=== PATIENT | female | born 1945 | race Caucasian/White ===

== ENCOUNTER 2017-05-14 02:03 | Emergency (ER) | payer MEDICARE ==
[2017-05-14] MEDS ORDERED: methylPREDNISolone Sod Succ/PF 125 MG/2 ML VIAL ONE (03:05)
[2017-05-14 03:13] LABS: ALT (SGPT) 49 U/L (8-55); AST (SGOT) 43 U/L (5-34); Albumin 3.3 g/dL (3.4-4.8); Alkaline Phosphatase 96 U/L (40-150); Anion Gap 14 mmol/L (10-20); BUN (Urea Nitrogen) 18 mg/dL (9.8-20.1); Bilirubin, Total 0.4 mg/dL (0.2-1.2); Calc. Creatinine Clearance 0 mL/min (70-130); Calcium 8.2 mg/dL (7.8-10.44); Carbon Dioxide 22 mmol/L (23-31); Chloride 98 mmol/L (98-107); Estimated GFR-MDRD 37; Globulin 3.7 g/dL (2.4-3.5); Glucose 135 mg/dL (83-110); Potassium 3.9 mmol/L (3.5-5.1); Sodium 130 mmol/L (136-145)
[2017-05-14 03:20] LABS: PTT 32.1 SEC (22.9-36.1); Prothrombin Time 13.8 SEC (12.0-14.7)
[2017-05-14 03:24] LABS: Hemoglobin 10.1 g/dL (12.0-16.0); Red Blood Cell (RBC) Count 3.24 mill/uL (4.20-5.40); White Blood Cell (WBC) Count 20.9 thou/uL (4.8-10.8)
[2017-05-14 03:25] LABS: #Basophils 0.1 thou/uL (0.0-0.2); #Eosinphils 0.2 thou/uL (0.0-0.7); #Monocytes 1.2 thou/uL (0.11-0.59); #Neutrophils 18.6 thou/uL (1.40-6.50); %Basophils 0.7 % (0.0-1.0); %Eosinophils 0.7 % (0.0-10.0); %Lymphocytes 4.5 % (21.0-51.0); %Monocytes 5.5 % (0.0-10.0); %Neutrophils 88.6 % (42.0-75.0); Manual Diff?? YES; Mean Corpuscular HGB CONC 34.4 g/dL (32.0-36.0); Mean Corpuscular Hemoglobin 31.3 pg (27.0-31.0); Mean Corpuscular Volume 90.9 fL (81.0-99.0); Mean Platelet Volume 5.2 fL (7.4-10.4); Platelet Count 256 thou/uL (130-400); RBC Distribution Width 14.6 % (11.5-14.5)
[2017-05-14 03:26] LABS: Band 3 % (5-11); Eosinophils 2 % (0-10); Lymphocytes 4 % (21-51); MDiff Complete? YES; Monocytes 6 % (0-10); Neutrophil 85 % (42-75); Ovalocytes SLIGHT = 2-5 cells (100X) (0-1/hpf); PLT Morphology Comment Appears Adequate
[2017-05-14 03:27] LABS: RBC Morphology Abnormal
[2017-05-14] MEDS ORDERED: Sodium Chloride Irrig Solution 250 ML BOT ONE (07:10)
== END 2017-05-14 03:15 | disposition short-term general hospital (02) ==
LOC: MADERS 02:03
DX: S00.03XA Contusion of scalp, initial encounter (principal); J45.901 Unspecified asthma with (acute) exacerbation; R41.82 Altered mental status, unspecified; E78.5 Hyperlipidemia, unspecified; F32.9 Major depressive disorder, single episode, unspecified; F41.9 Anxiety disorder, unspecified; K21.9 Gastro-esophageal reflux disease without esophagitis; M06.9 Rheumatoid arthritis, unspecified; M19.90 Unspecified osteoarthritis, unspecified site; M81.0 Age-related osteoporosis without current pathological fracture; Z87.891 Personal history of nicotine dependence; Z79.899 Other long term (current) drug therapy; Z79.51 Long term (current) use of inhaled steroids; W19.XXXA Unspecified fall, initial encounter
CPT/HCPCS: 80053; 85025; 85610; 85730; 94640; 94760; 96374; J2930; J7620

== ENCOUNTER 2018-02-07 17:02 | Emergency (ER) | payer MEDICARE, OTHER ==
[~2018-02-07 17:02] MED LIST: Sodium Chloride 0.9% 500 ML BAG ONE
[2018-02-07 18:06] LABS: Band 3 % (5-11); Eosinophils 1 % (0-10); Hemoglobin 11.7 g/dL (12.0-16.0); MDiff Complete? YES; Mean Corpuscular HGB CONC 32.6 g/dL (32.0-36.0); Mean Corpuscular Hemoglobin 29.4 pg (27.0-31.0); Mean Corpuscular Volume 90.1 fL (78.0-98.0); Mean Platelet Volume 6.9 fL (7.4-10.4); Metamyelocyte 1 % (0-0); Monocytes 13 % (0-10); Neutrophil 80 % (42-75); PLT Morphology Comment Appears Adequate; Platelet Count 186 thou/uL (130-400); Reactive Lymphocytes 2 % (0-10); Red Blood Cell (RBC) Count 3.98 mill/uL (4.20-5.40); White Blood Cell (WBC) Count 12.1 thou/uL (4.8-10.8)
[2018-02-07] MEDS ORDERED: Acetaminophen 500 MG TAB ONE (18:08)
[2018-02-07] MEDS ORDERED: Levofloxacin 500 mg/D5W 100 ml Premix Bag ONE (18:08)
[2018-02-07 18:11] LABS: ALT (SGPT) 20 U/L (8-55); AST (SGOT) 25 U/L (5-34); Albumin 3.8 g/dL (3.4-4.8); Alkaline Phosphatase 143 U/L (40-150); Anion Gap 16 mmol/L (10-20); BUN (Urea Nitrogen) 14 mg/dL (9.8-20.1); Bilirubin, Total 0.4 mg/dL (0.2-1.2); Calc. Creatinine Clearance 0 mL/min (70-130); Carbon Dioxide 19 mmol/L (23-31); Chloride 104 mmol/L (98-107); Estimated GFR-MDRD 47; Globulin 3.8 g/dL (2.4-3.5); Glucose 138 mg/dL (83-110); Potassium 3.6 mmol/L (3.5-5.1); Protein, Total 7.6 g/dL (6.0-8.3); Sodium 135 mmol/L (136-145)
--- NOTE | 2018-02-07 18:44 | RAD ---
CHEST TWO VIEWS: HISTORY: COMPARISON: 06/24/2017 FINDINGS: Elevation of the right hemidiaphragm is again demonstrated. A right-sided Mediport catheter is noted . A right upper lobe lung mass is again seen. Slightly increased pleural changes in the right apex, as compared to the prior exam. The left lung is clear. In reviewing a 12/08/2017 CT examination, c hanges of the right upper lobe appear fairly similar to that examination. IMPRESSION: Essentially stable examination. POS: N[facility]
[2018-02-07 18:56] LABS: Bilirubin Negative (Negative); Blood, Urine Trace (Negative); Clarity Clear (Clear); Glucose, Urine (Dipstick) Negative (Negative); Leukocyte Negative (Negative); Nitrite Negative (Negative); Protein, Urine (Dipstick) Negative (Neg-Trace); Urobilinogen 0.2 mg/dL (0.2-1.0)
[2018-02-07 19:02] LABS: Bacteria/HPF Rare-Few HPF (None Seen); Crystals/HPF 2+ AMORPH URATES HPF (Negative); RBC/HPF 0-3 HPF (0-3); Specific Gravity, Urine 1.007 (1.002-1.036); Squamous Epithelial 0-3 HPF (0-3); WBC/HPF 0-3 HPF (0-3)
== END 2018-02-07 20:02 | disposition short-term general hospital (02) ==
LOC: MADERS 17:02
DX: J18.9 Pneumonia, unspecified organism (principal); F41.9 Anxiety disorder, unspecified; F32.9 Major depressive disorder, single episode, unspecified; Z87.891 Personal history of nicotine dependence; K21.9 Gastro-esophageal reflux disease without esophagitis; J44.9 Chronic obstructive pulmonary disease, unspecified; E78.5 Hyperlipidemia, unspecified; M81.0 Age-related osteoporosis without current pathological fracture; Z79.899 Other long term (current) drug therapy
CPT/HCPCS: 36415; 71046; 80053; 81003; 81015; 83605; 85025; 87040; 87086; 87804; 94640; 96360; 96365; J1956; J7050; J7620

== ENCOUNTER 2018-07-18 13:45 | Inpatient (IN) | payer MEDICARE, MEDICAID ==
[2018-07-18] MEDS ORDERED: Cholestyramine/Aspartame 4 gm Packet PO PRN (15:20)
[2018-07-18] MEDS: Mag-Al Plus 1200 MG/1200 MG/120 MG/30 ML UDCUP PO PRN (17:25)
[2018-07-18] MEDS: Acetaminophen/Codeine 30-300mg Tablet PO PRN (19:03)
[2018-07-18] MEDS: Metoprolol Tartrate 25 MG TAB PO SCH (20:29)
[2018-07-18] MEDS: Megestrol Acetate 400 MG/10 ML UDCUP PO SCH (20:29)
[2018-07-18] MEDS: Potassium Chloride 20 MEQ TAB PO SCH (20:29)
[2018-07-18] MEDS: Atorvastatin Calcium 10 MG TAB PO SCH (20:32)
[2018-07-19 07:07] LABS: #Basophils 0.1 thou/uL (0.0-0.2); #Eosinphils 0.1 thou/uL (0.0-0.7); #Lymphocytes 0.7 thou/uL (1.20-3.40); #Monocytes 0.9 thou/uL (0.11-0.59); %Basophils 1.5 % (0.0-1.0); %Lymphocytes 7.9 % (21.0-51.0); %Monocytes 10.1 % (0.0-10.0); %Neutrophils 79.6 % (42.0-75.0); Hemoglobin 10.1 g/dL (12.0-16.0); Mean Corpuscular HGB CONC 31.1 g/dL (32.0-36.0); Mean Corpuscular Hemoglobin 28.1 pg (27.0-31.0); Mean Corpuscular Volume 90.4 fL (78.0-98.0); Mean Platelet Volume 4.9 fL (7.4-10.4); Platelet Count 348 thou/uL (130-400); RBC Distribution Width 15.2 % (11.5-14.5); Red Blood Cell (RBC) Count 3.58 mill/uL (4.20-5.40); White Blood Cell (WBC) Count 8.8 thou/uL (4.8-10.8)
[2018-07-19] MEDS: Spironolactone 25 MG TAB PO SCH (07:12)
[2018-07-19 07:57] LABS: Anion Gap 19 mmol/L (10-20); BUN (Urea Nitrogen) 9 mg/dL (9.8-20.1); Calc. Creatinine Clearance 63 mL/min (70-130); Calcium 10.3 mg/dL (7.8-10.44); Carbon Dioxide 19 mmol/L (23-31); Chloride 105 mmol/L (98-107); Estimated GFR-MDRD 68; Glucose 89 mg/dL (83-110); Potassium 5.8 mmol/L (3.5-5.1); Sodium 137 mmol/L (136-145)
[2018-07-19] MEDS: Megestrol Acetate 400 MG/10 ML UDCUP PO SCH ×2 (09:02→20:09)
[2018-07-19] MEDS: ALPRAZolam 0.5 MG TAB PO SCH ×2 (09:02→14:17)
[2018-07-19] MEDS: Bupropion 150 MG XL TAB PO SCH (09:02)
[2018-07-19] MEDS: Potassium Chloride 20 MEQ TAB PO SCH ×2 (09:03→14:17)
[2018-07-19] MEDS: Loratadine 10 MG TAB PO SCH (09:03)
[2018-07-19] MEDS: Rivaroxaban 10 MG TAB PO SCH (09:03)
[2018-07-19] MEDS: Fish Oil 1,000 MG CAP PO SCH (09:03)
[2018-07-19] MEDS: Metoprolol Tartrate 25 MG TAB PO SCH ×2 (09:03→20:08)
[2018-07-19] MEDS: Acetaminophen/Codeine 30-300mg Tablet PO PRN ×2 (10:22→16:12)
[2018-07-19] MEDS: Mag-Al Plus 1200 MG/1200 MG/120 MG/30 ML UDCUP PO PRN (15:38)
[2018-07-19] MEDS ORDERED: Budesonide 0.5 MG/2 ML NEB NEB SCH (19:00)
[2018-07-19] MEDS: Atorvastatin Calcium 10 MG TAB PO SCH (20:09)
--- NOTE | 2018-07-20 00:23 | HP ---
REASON FOR ADMISSION: Transferred to [facility] for skilled rehab. HISTORY OF PRESENT ILLNESS: Ms. Jeffers is a very pleasant, 73-year-old female with significant history of superior vena cava syndrome, small cell lung cancer with thoracic fractures due to radiation therapy, hypoxia, O2 dependent, rheumatoid arthritis, asthma, osteoporosis, and COPD. The patient was recently admitted to [facility] on 07/14/2018, secondary to new onset atrial fibrillation with rapid ventricular response. The patient reports that she was just recently admitted to [facility] prior to this hospitalization, and since then she has been getting steadily weaker and unable to tolerate prolonged ambulation due to unsteadiness of feet and has had falls. She reports intermittent shortness of breath with occasional productive cough. She was on oral chemo once a week for small lung cell carcinoma. The patient reports that her oncologist is Dr. Riley and had put her on 2 L fluid restriction per day due to persistent swelling of the bilateral arms. She followed up with Dr. Valadez for her respiratory issues. She reports that Dr. Valadez had drained fluid around her lungs before due to dyspnea on exertion and shortness of breath. During this recent hospitalization , she presented with atrial fibrillation and heart rate of 140 beats per minute. She was also noted to have dehydration and some D-dimer elevation that was deemed secondary to superior vena cava syndrome. The patient received salt-poor albumin during this admission and her Xarelto was continued for anticoagulation purposes, which was placed on when she had this superior vena cava blood clot was noted. Echocardiogram on 07/15/2018, showed EF of 60% to 65% suggestive of diastolic dysfunction, mild mitral regurgitation, mild tricuspid regurgitation, and mild pulmonic regurgitation were noted. She also has had a pacemaker and AICD leads were visualized. This was read by Dr. Ortiz. Dr. Ortiz said he had also seen the patient during this hospitalization and the patient was placed on beta tong to decrease the atrial arrhythmias noted. There was also suggestion for possible stent placement eventually for alleviation of the superior vena cava obstruction. During this hospitalization, there was also a venogram of both lower extremities, which were reported negative on 07/14/2018, for deep venous thrombosis. Her chest x- ray at that time showed opacity in the right lower lung and the left lung is clear, but the heart is stable. The patient's heart rate has been well controlled and electrolytes secondary to dehydration were corrected. Her cardiac status was deemed stable by after school teacher, thus recommended discharge. Due to patient's persistent deconditioned status, the patient agreed to be transferred to [facility] for skilled rehab, thus transferred on 07/18/2018. The patient has had a smooth overnight stay. This morning, she started therapy , but per therapist after few steps, the patient developed significant dyspnea on exertion, she was also noted to have some wheezing. Bronchodilators and rest had helped the patient markedly. O2 saturation was stable at 93% on 3 L per nasal cannula. No other new issues are reported. PAST MEDICAL HISTORY: Sick sinus syndrome, status post pacemaker placement, metastatic lung squamous cell carcinoma with related thoracic fractures, rheumatoid arthritis, asthma, osteoporosis, GERD, osteoarthritis, hyperlipidemia, COPD, depression, and chronic anemia. PAST SURGICAL HISTORY: Pacemaker, hysterectomy, tonsillectomy, and lung biopsies. SOCIAL HISTORY: Former smoker, [id number] history, quit greater than 5 years ago. No alcohol or recreational drugs. ALLERGIES: PENICILLIN AND SULFA. CURRENT MEDICATIONS: 1. Acetaminophen and codeine. 2. Tylenol No. 3 two tablets q.6 hours p.r.n. 3. DuoNeb 3 mL q.4 hours p.r.n. 4. Alprazolam 0.5 mg b.i.d. 5. Atorvastatin 10 mg p.o. at bedtime. 6. Benzonatate 200 mg p.o. q.6 hours p.r.n. 7. Bupropion 300 mg p.o. daily. 8. Cholestyramine/Questran Light 4 g p.o. b.i.d. p.r.n. 9. Fish oil 1000 mg p.o. daily. 10. Loratadine 10 mg p.o. q.a.m. 11. Megace 400 mg p.o. b.i.d. 12. Metoprolol 25 mg p.o. b.i.d. 13. Pantoprazole 40 mg p.o. daily. 14. Potassium chloride 20 mEq p.o. t.i.d. 15. Xarelto 20 mg p.o. daily. 16. Spironolactone 25 mg p.o. daily. REVIEW OF SYSTEMS: GENERAL: Denies fever and chills. Reports loss of appetite , fatigue, and general weakness. HEENT: Complains of intermittent headache, otherwise no acute visual changes or hearing changes. Also reports allergy symptoms. CARDIOVASCULAR: As per HPI. Otherwise, no active chest pain, diaphoresis, or palpitations. RESPIRATORY: Complaints of intermittent cough, shortness of breath, wheezing. Denies pain with breathing or bloody sputum. GI: Denies nausea, vomiting, abdominal pain, bloody stools, changes in bowel movements. GENITOURINARY: No dysuria, frequency, urgency, or incontinence. MUSCULOSKELETAL: Reports intermittent arthralgia and stiffness of the joints. No joint effusion or erythema. NEUROLOGIC: No focal numbness, focal weakness, tics, tremors, or seizures. PSYCH: Reports depression and anxiety. No insomnia, hallucinations, suicidal thoughts or ideation. SKIN: No skin rashes or lesions. LABORATORY DATA: Latest blood work prior to discharge on 07/18/2018; WBC 5.1, hemoglobin 9.6, hematocrit 29.8, platelet count is 267. D-dimer 2.68 on 2018. Chemistry on 07/15/2018; potassium 2.9, BUN 9, creatinine is 0.74, LDL 47, HDL 36, cholesterol 96, triglycerides 63. On 07/17/2018, potassium is 3.3; on 07/18, potassium is 4.4. Urine, negative. PHYSICAL EXAMINATION: VITAL SIGNS: Blood pressure 117/67, temp 97.3, pulse 79, respirations 24, O2 saturations 97% on 3 L per nasal cannula, weight 145 pounds 1 ounce, height 5 feet 4 inches. GENERAL: The patient is awake, alert, and oriented x3. Chronically fatigued looking, built obese, comfortably resting in bed, not in distress HEENT: Normocephalic, atraumatic. PERRL. Intact EOM. Anicteric sclerae. Oral mucosa is moist. NECK: Supple. No LAD. Flat JVD. LUNGS: Mild tachypneic, nonlabored breathing. Prolonged expiratory phase. No rales, wheezing, crackles, or rhonchi(of note, the patient just received her bronchodilator 2nd dose for today). CARDIAC: Rate controlled. Normal S1 and S2. No murmurs. ABDOMEN: Obese, soft, nondistended. Normoactive bowel sounds. Nontender. Negative CVA tenderness bilaterally. EXTREMITIES: Bilateral edema of both upper extremities. No erythema. Trace non-pedal edema of both lower extremities. Negative calf tenderness or Homans signs bilaterally. No cyanosis. SKIN: Intact. No rash. No lesions. Good skin turgor. Warm and moist. NEUROLOGIC: Nonfocal. Gait unsteady. PSYCH: Appears calmer with appropriate demeanor and affect, interactive. CURRENT LAB WORKS: WBC 8.8, hemoglobin 10.1, hematocrit 32.4, platelets 348. Chemistry; sodium 137, potassium 5.8, chloride 105, BUN 9, creatinine 0.82, glucose 89, calcium 10.3. ASSESSMENT AND PLAN: 1. Deconditioning secondary to general weakness. 2. New onset atrial fibrillation, rate controlled, currently on beta tong and Xarelto.. 3. Superior vena cava syndrome/obstruction. 4. Chronic obstructive pulmonary disease, O2 requiring. 5. Chronic respiratory failure, O2 dependent. 6. Metastatic squamous cell lung cancer on oral chemo, followed by Dr. Riley. 7. History for hypokalemia, now with hyperkalemia. 8. Chronic anemia. 9. Dyslipidemia. 10. Depression and anxiety. 11. Chronic gastroesophageal reflux disease. 12. Seasonal allergic rhinitis. 13. Long-term use of anticoagulant (Xarelto). 14. Unsteady gait. PLAN: 1. The patient is admitted to [facility] for purposes of skilled rehab. PT and OT eval and treat. 2. Continue all current medications as modified per list. We will hold potassium supplement at this time secondary to elevated potassium level. We will repeat serial lab for electrolyte monitoring. 3. DVT prophylaxis not indicated as the patient is already on anticoagulant use. 4. We will continue to monitor the medical stability of the patient and watch for any untoward complications that may hinder progression to rehab goal. 5.Social Work consult in preparation for patient's disposition to go back home in a timely and safe manner. We will arrange for any supplies prior to discharge if needed. Consider further therapy at home with home health thereafter. 5. Further recommendations depending on the hospital course. 6. Estimated length of stay, 2 to 3 weeks. 7. Code status, the patient reports DNAR as witnessed by her sister upon admission. This was confirmed with the patient today at today's visit. Job ID: [id number] [facility]
[2018-07-20] MEDS: Acetaminophen/Codeine 30-300mg Tablet PO PRN ×3 (01:45→19:06)
[2018-07-20 07:49] LABS: Anion Gap 14 mmol/L (10-20); BUN (Urea Nitrogen) 12 mg/dL (9.8-20.1); Calc. Creatinine Clearance 62 mL/min (70-130); Calcium 9.4 mg/dL (7.8-10.44); Carbon Dioxide 24 mmol/L (23-31); Chloride 105 mmol/L (98-107); Estimated GFR-MDRD 70; Glucose 98 mg/dL (83-110); Potassium 4.7 mmol/L (3.5-5.1); Sodium 138 mmol/L (136-145)
[2018-07-20] MEDS: ALPRAZolam 0.5 MG TAB PO SCH ×2 (08:06→14:06)
[2018-07-20] MEDS: Bupropion 150 MG XL TAB PO SCH (08:06)
[2018-07-20] MEDS: Metoprolol Tartrate 25 MG TAB PO SCH ×3 (08:06→20:43)
[2018-07-20] MEDS: Fish Oil 1,000 MG CAP PO SCH (08:06)
[2018-07-20] MEDS: Loratadine 10 MG TAB PO SCH (08:06)
[2018-07-20] MEDS: Rivaroxaban 10 MG TAB PO SCH (08:06)
[2018-07-20] MEDS: Megestrol Acetate 400 MG/10 ML UDCUP PO SCH ×2 (08:06→20:42)
[2018-07-20] MEDS: Spironolactone 25 MG TAB PO SCH (08:06)
[2018-07-20] MEDS: Budesonide 0.5 MG/2 ML NEB NEB SCH ×2 (08:48→20:40)
[2018-07-20] MEDS: Benzonatate 100 MG CAP PO PRN (14:06)
--- NOTE | 2018-07-20 15:14 | RAD ---
CHEST: Date: 07/20/18 COMPARISON: 07/14/18. HISTORY: Shortness of breath. FINDINGS: Single view of the chest shows an enlarged but stable cardiomediastinal silhouette. The pacemaker and MediPort are unchanged in position. There is a large right pleural effusion, unchanged. IMPRESSION: Stable exam. POS: [facility]
[2018-07-20] MEDS: Atorvastatin Calcium 10 MG TAB PO SCH (20:42)
[2018-07-20] MEDS ORDERED: Acetaminophen/Codeine 30-300mg Tablet PO SCH (22:30)
[2018-07-21] MEDS: Acetaminophen/Codeine 30-300mg Tablet PO PRN ×4 (03:04→19:29)
[2018-07-21] MEDS: Metoprolol Tartrate 25 MG TAB PO SCH ×2 (07:13→20:05)
[2018-07-21] MEDS: Fish Oil 1,000 MG CAP PO SCH (07:13)
[2018-07-21] MEDS: Rivaroxaban 10 MG TAB PO SCH (07:13)
[2018-07-21] MEDS: Bupropion 150 MG XL TAB PO SCH (07:13)
[2018-07-21] MEDS: Budesonide 0.5 MG/2 ML NEB NEB SCH ×2 (07:14→20:06)
[2018-07-21] MEDS: Spironolactone 25 MG TAB PO SCH (07:14)
[2018-07-21] MEDS: ALPRAZolam 0.5 MG TAB PO SCH ×2 (07:14→13:37)
[2018-07-21] MEDS: Megestrol Acetate 400 MG/10 ML UDCUP PO SCH ×2 (07:14→20:04)
[2018-07-21] MEDS: Loratadine 10 MG TAB PO SCH (07:14)
[2018-07-21] MEDS: Atorvastatin Calcium 10 MG TAB PO SCH (20:05)
[2018-07-22] MEDS: Acetaminophen/Codeine 30-300mg Tablet PO PRN ×4 (03:18→21:11)
[2018-07-22] MEDS: ALPRAZolam 0.5 MG TAB PO SCH ×2 (08:29→14:05)
[2018-07-22] MEDS: Budesonide 0.5 MG/2 ML NEB NEB SCH ×2 (08:30→20:49)
[2018-07-22] MEDS: Rivaroxaban 10 MG TAB PO SCH (08:31)
[2018-07-22] MEDS: Bupropion 150 MG XL TAB PO SCH (08:31)
[2018-07-22] MEDS: Spironolactone 25 MG TAB PO SCH (08:31)
[2018-07-22] MEDS: Loratadine 10 MG TAB PO SCH (08:31)
[2018-07-22] MEDS: Metoprolol Tartrate 25 MG TAB PO SCH ×2 (08:31→20:49)
[2018-07-22] MEDS: Fish Oil 1,000 MG CAP PO SCH (08:31)
[2018-07-22] MEDS: Megestrol Acetate 400 MG/10 ML UDCUP PO SCH ×2 (08:31→20:50)
[2018-07-22] MEDS: Atorvastatin Calcium 10 MG TAB PO SCH (20:49)
[2018-07-23] MEDS: Acetaminophen/Codeine 30-300mg Tablet PO PRN ×3 (02:37→16:50)
[2018-07-23] MEDS: Spironolactone 25 MG TAB PO SCH (07:06)
[2018-07-23] MEDS: Megestrol Acetate 400 MG/10 ML UDCUP PO SCH ×2 (08:28→21:24)
[2018-07-23] MEDS: Bupropion 150 MG XL TAB PO SCH (08:28)
[2018-07-23] MEDS: Metoprolol Tartrate 25 MG TAB PO SCH ×2 (08:29→21:24)
[2018-07-23] MEDS: ALPRAZolam 0.5 MG TAB PO SCH ×2 (08:29→14:24)
[2018-07-23] MEDS: Fish Oil 1,000 MG CAP PO SCH (08:29)
[2018-07-23] MEDS: Loratadine 10 MG TAB PO SCH (08:29)
[2018-07-23] MEDS: Rivaroxaban 10 MG TAB PO SCH (08:29)
[2018-07-23] MEDS: Budesonide 0.5 MG/2 ML NEB NEB SCH ×2 (08:30→21:23)
[2018-07-23] MEDS: Atorvastatin Calcium 10 MG TAB PO SCH (21:23)
[2018-07-23] MEDS: Benzonatate 100 MG CAP PO PRN (21:25)
[2018-07-24] MEDS ORDERED: Acetaminophen/Codeine 30-300mg Tablet PO SCH (01:00)
[2018-07-24] MEDS: HYDROcodone/Acetaminophen 10/325 mg Tablet PO SCH ×3 (06:11→21:28)
[2018-07-24] MEDS: Budesonide 0.5 MG/2 ML NEB NEB SCH ×2 (08:20→20:29)
[2018-07-24] MEDS: Rivaroxaban 10 MG TAB PO SCH (08:26)
[2018-07-24] MEDS: Bupropion 150 MG XL TAB PO SCH (08:26)
[2018-07-24] MEDS: Fish Oil 1,000 MG CAP PO SCH (08:26)
[2018-07-24] MEDS: ALPRAZolam 0.5 MG TAB PO SCH ×2 (08:26→14:57)
[2018-07-24] MEDS: Metoprolol Tartrate 25 MG TAB PO SCH ×2 (08:27→20:28)
[2018-07-24] MEDS: Spironolactone 25 MG TAB PO SCH (08:27)
[2018-07-24] MEDS: Loratadine 10 MG TAB PO SCH (08:27)
[2018-07-24] MEDS: Megestrol Acetate 400 MG/10 ML UDCUP PO SCH ×2 (08:36→20:27)
[2018-07-24] MEDS: Atorvastatin Calcium 10 MG TAB PO SCH (20:28)
[2018-07-25] MEDS: Acetaminophen/Codeine 30-300mg Tablet PO PRN ×3 (02:21→19:16)
[2018-07-25] MEDS: HYDROcodone/Acetaminophen 10/325 mg Tablet PO SCH ×3 (05:57→23:46)
[2018-07-25] MEDS: Bupropion 150 MG XL TAB PO SCH (08:25)
[2018-07-25] MEDS: Metoprolol Tartrate 25 MG TAB PO SCH ×2 (08:25→20:19)
[2018-07-25] MEDS: Spironolactone 25 MG TAB PO SCH (08:26)
[2018-07-25] MEDS: Rivaroxaban 10 MG TAB PO SCH (08:26)
[2018-07-25] MEDS: Megestrol Acetate 400 MG/10 ML UDCUP PO SCH ×2 (08:26→20:19)
[2018-07-25] MEDS: Fish Oil 1,000 MG CAP PO SCH (08:26)
[2018-07-25] MEDS: Loratadine 10 MG TAB PO SCH (08:26)
[2018-07-25] MEDS: ALPRAZolam 0.5 MG TAB PO SCH ×2 (08:26→15:32)
[2018-07-25] MEDS: Budesonide 0.5 MG/2 ML NEB NEB SCH ×2 (08:26→20:20)
[2018-07-25] MEDS: Atorvastatin Calcium 10 MG TAB PO SCH (20:19)
[2018-07-26] MEDS: HYDROcodone/Acetaminophen 10/325 mg Tablet PO SCH ×3 (06:12→21:07)
[2018-07-26] MEDS: ALPRAZolam 0.5 MG TAB PO SCH ×2 (09:03→14:50)
[2018-07-26] MEDS: Loratadine 10 MG TAB PO SCH (09:04)
[2018-07-26] MEDS: Fish Oil 1,000 MG CAP PO SCH (09:04)
[2018-07-26] MEDS: Spironolactone 25 MG TAB PO SCH (09:04)
[2018-07-26] MEDS: Metoprolol Tartrate 25 MG TAB PO SCH ×2 (09:04→21:07)
[2018-07-26] MEDS: Megestrol Acetate 400 MG/10 ML UDCUP PO SCH ×2 (09:04→21:08)
[2018-07-26] MEDS: Bupropion 150 MG XL TAB PO SCH (09:04)
[2018-07-26] MEDS: Rivaroxaban 10 MG TAB PO SCH (09:04)
[2018-07-26] MEDS: Budesonide 0.5 MG/2 ML NEB NEB SCH ×2 (09:05→21:09)
--- NOTE | 2018-07-26 13:35 | RAD ---
XR Chest Pa Lat STANDARD History: Shortness of breath Comparison: Radiograph July 20, 2018 Findings: Port catheter is similar. Large right subpleural effusion. Mild atelectasis left lung base. Dual-lead pacer is similar.. Impression: Very large right subpleural effusion with underlying mass.
[2018-07-26] MEDS: Acetaminophen/Codeine 30-300mg Tablet PO PRN (19:47)
[2018-07-26] MEDS: Atorvastatin Calcium 10 MG TAB PO SCH (21:06)
[2018-07-27] MEDS: Acetaminophen/Codeine 30-300mg Tablet PO PRN ×2 (02:43→11:29)
[2018-07-27] MEDS: HYDROcodone/Acetaminophen 10/325 mg Tablet PO SCH ×2 (05:41→14:10)
[2018-07-27] MEDS: ALPRAZolam 0.5 MG TAB PO SCH ×2 (08:17→14:09)
[2018-07-27] MEDS: Spironolactone 25 MG TAB PO SCH (08:17)
[2018-07-27] MEDS: Loratadine 10 MG TAB PO SCH (08:18)
[2018-07-27] MEDS: Megestrol Acetate 400 MG/10 ML UDCUP PO SCH ×2 (08:18→21:26)
[2018-07-27] MEDS: Rivaroxaban 10 MG TAB PO SCH (08:18)
[2018-07-27] MEDS: Budesonide 0.5 MG/2 ML NEB NEB SCH ×2 (08:18→21:25)
[2018-07-27] MEDS: Fish Oil 1,000 MG CAP PO SCH (08:18)
[2018-07-27] MEDS: Bupropion 150 MG XL TAB PO SCH (08:18)
[2018-07-27] MEDS: Metoprolol Tartrate 25 MG TAB PO SCH ×2 (08:18→21:27)
[2018-07-27] MEDS: ALPRAZolam 0.5 MG TAB PO PRN ×2 (17:11→21:27)
[2018-07-27] MEDS: HYDROcodone/Acetaminophen 10/325 mg Tablet PO PRN ×3 (17:11→23:44)
[2018-07-27] MEDS: Atorvastatin Calcium 10 MG TAB PO SCH (21:25)
[2018-07-28] MEDS: HYDROcodone/Acetaminophen 10/325 mg Tablet PO PRN ×5 (03:25→21:27)
[2018-07-28] MEDS: ALPRAZolam 0.5 MG TAB PO PRN (03:25)
[2018-07-28] MEDS: Megestrol Acetate 400 MG/10 ML UDCUP PO SCH ×2 (08:35→21:26)
[2018-07-28] MEDS: Budesonide 0.5 MG/2 ML NEB NEB SCH ×2 (08:35→21:26)
[2018-07-28] MEDS: ALPRAZolam 0.5 MG TAB PO SCH ×2 (08:35→13:53)
[2018-07-28] MEDS: Metoprolol Tartrate 25 MG TAB PO SCH ×2 (08:36→21:26)
[2018-07-28] MEDS: Rivaroxaban 10 MG TAB PO SCH (08:36)
[2018-07-28] MEDS: Fish Oil 1,000 MG CAP PO SCH (08:36)
[2018-07-28] MEDS: Bupropion 150 MG XL TAB PO SCH (08:36)
[2018-07-28] MEDS: Loratadine 10 MG TAB PO SCH (08:36)
[2018-07-28] MEDS: Spironolactone 25 MG TAB PO SCH (08:36)
[2018-07-28] MEDS: Atorvastatin Calcium 10 MG TAB PO SCH (21:26)
[2018-07-29] MEDS: HYDROcodone/Acetaminophen 10/325 mg Tablet PO PRN ×4 (04:31→19:32)
[2018-07-29] MEDS: Bupropion 150 MG XL TAB PO SCH (07:43)
[2018-07-29] MEDS: Metoprolol Tartrate 25 MG TAB PO SCH ×2 (07:43→20:08)
[2018-07-29] MEDS: Rivaroxaban 10 MG TAB PO SCH (07:43)
[2018-07-29] MEDS: Spironolactone 25 MG TAB PO SCH (07:43)
[2018-07-29] MEDS: ALPRAZolam 0.5 MG TAB PO SCH ×2 (07:43→14:15)
[2018-07-29] MEDS: Fish Oil 1,000 MG CAP PO SCH (07:43)
[2018-07-29] MEDS: Benzonatate 100 MG CAP PO PRN (07:44)
[2018-07-29] MEDS: Loratadine 10 MG TAB PO SCH (07:44)
[2018-07-29] MEDS: Budesonide 0.5 MG/2 ML NEB NEB SCH ×2 (07:44→20:05)
[2018-07-29] MEDS: Megestrol Acetate 400 MG/10 ML UDCUP PO SCH ×2 (07:44→20:08)
[2018-07-29] MEDS: Atorvastatin Calcium 10 MG TAB PO SCH (20:08)
[2018-07-30] MEDS: HYDROcodone/Acetaminophen 10/325 mg Tablet PO PRN ×5 (00:41→20:52)
[2018-07-30] MEDS ORDERED: Bisacodyl 10 MG SUPP PR PRN (07:25)
[2018-07-30] MEDS: Bupropion 150 MG XL TAB PO SCH (08:30)
[2018-07-30] MEDS: Rivaroxaban 10 MG TAB PO SCH (08:30)
[2018-07-30] MEDS: Fish Oil 1,000 MG CAP PO SCH (08:31)
[2018-07-30] MEDS: Metoprolol Tartrate 25 MG TAB PO SCH ×2 (08:31→20:54)
[2018-07-30] MEDS: Spironolactone 25 MG TAB PO SCH (08:31)
[2018-07-30] MEDS: ALPRAZolam 0.5 MG TAB PO SCH ×2 (08:31→13:22)
[2018-07-30] MEDS: Megestrol Acetate 400 MG/10 ML UDCUP PO SCH ×2 (08:32→20:52)
[2018-07-30] MEDS: Senokot S 8.6-50 MG TAB PO SCH ×2 (08:32→20:54)
[2018-07-30] MEDS: Loratadine 10 MG TAB PO SCH (08:32)
[2018-07-30] MEDS: Budesonide 0.5 MG/2 ML NEB NEB SCH ×2 (08:36→20:55)
[2018-07-30] MEDS: Atorvastatin Calcium 10 MG TAB PO SCH (20:54)
[2018-07-31] MEDS: Benzonatate 100 MG CAP PO PRN ×2 (01:08→16:00)
[2018-07-31] MEDS: HYDROcodone/Acetaminophen 10/325 mg Tablet PO PRN ×5 (04:39→20:13)
[2018-07-31] MEDS: Mag-Al Plus 1200 MG/1200 MG/120 MG/30 ML UDCUP PO PRN (09:24)
[2018-07-31] MEDS: Megestrol Acetate 400 MG/10 ML UDCUP PO SCH ×2 (09:25→20:07)
[2018-07-31] MEDS: Senokot S 8.6-50 MG TAB PO SCH ×2 (09:25→20:07)
[2018-07-31] MEDS: Metoprolol Tartrate 25 MG TAB PO SCH ×2 (09:25→20:07)
[2018-07-31] MEDS: Loratadine 10 MG TAB PO SCH (09:25)
[2018-07-31] MEDS: Spironolactone 25 MG TAB PO SCH (09:25)
[2018-07-31] MEDS: Rivaroxaban 10 MG TAB PO SCH (09:25)
[2018-07-31] MEDS: Fish Oil 1,000 MG CAP PO SCH (09:25)
[2018-07-31] MEDS: Bupropion 150 MG XL TAB PO SCH (09:25)
[2018-07-31] MEDS: ALPRAZolam 0.5 MG TAB PO SCH ×2 (09:26→14:23)
[2018-07-31] MEDS: Budesonide 0.5 MG/2 ML NEB NEB SCH ×2 (09:26→20:03)
[2018-07-31] MEDS: Atorvastatin Calcium 10 MG TAB PO SCH (20:03)
[2018-08-01 05:26] VITALS: BMI 24.0
[2018-08-01] MEDS: HYDROcodone/Acetaminophen 10/325 mg Tablet PO PRN ×4 (06:34→22:31)
[2018-08-01] MEDS: ALPRAZolam 0.5 MG TAB PO SCH ×2 (08:49→13:00)
[2018-08-01] MEDS: Budesonide 0.5 MG/2 ML NEB NEB SCH ×2 (08:50→20:39)
[2018-08-01] MEDS: Spironolactone 25 MG TAB PO SCH (08:51)
[2018-08-01] MEDS: Rivaroxaban 10 MG TAB PO SCH (08:51)
[2018-08-01] MEDS: Metoprolol Tartrate 25 MG TAB PO SCH ×2 (08:51→20:38)
[2018-08-01] MEDS: Fish Oil 1,000 MG CAP PO SCH (08:51)
[2018-08-01] MEDS: Bupropion 150 MG XL TAB PO SCH (08:51)
[2018-08-01] MEDS: Senokot S 8.6-50 MG TAB PO SCH ×2 (08:51→20:38)
[2018-08-01] MEDS: Loratadine 10 MG TAB PO SCH (08:51)
[2018-08-01] MEDS: Megestrol Acetate 400 MG/10 ML UDCUP PO SCH ×2 (08:53→20:38)
[2018-08-01] MEDS: Atorvastatin Calcium 10 MG TAB PO SCH (20:37)
[2018-08-01] MEDS: Benzonatate 100 MG CAP PO PRN (20:47)
[2018-08-01] MEDS: ALPRAZolam 0.5 MG TAB PO PRN (21:49)
[2018-08-02] MEDS: HYDROcodone/Acetaminophen 10/325 mg Tablet PO PRN ×2 (02:38→16:06)
[2018-08-02] MEDS: ALPRAZolam 0.5 MG TAB PO PRN (02:42)
[2018-08-02] MEDS: Megestrol Acetate 400 MG/10 ML UDCUP PO SCH (08:42)
[2018-08-02] MEDS: Bupropion 150 MG XL TAB PO SCH (08:42)
[2018-08-02] MEDS: Senokot S 8.6-50 MG TAB PO SCH ×2 (08:44→20:15)
[2018-08-02] MEDS: Metoprolol Tartrate 25 MG TAB PO SCH ×2 (08:44→20:15)
[2018-08-02] MEDS: Fish Oil 1,000 MG CAP PO SCH (08:44)
[2018-08-02] MEDS: ALPRAZolam 0.5 MG TAB PO SCH ×2 (08:44→14:12)
[2018-08-02] MEDS: Loratadine 10 MG TAB PO SCH (08:44)
[2018-08-02] MEDS: Spironolactone 25 MG TAB PO SCH (08:44)
[2018-08-02] MEDS: Budesonide 0.5 MG/2 ML NEB NEB SCH ×2 (08:45→20:16)
[2018-08-02] MEDS: Rivaroxaban 10 MG TAB PO SCH (08:45)
[2018-08-02] MEDS: Atorvastatin Calcium 10 MG TAB PO SCH (20:16)
[2018-08-03] MEDS: HYDROcodone/Acetaminophen 5/325 mg Tablet PO PRN ×3 (02:12→20:08)
[2018-08-03] MEDS: ALPRAZolam 0.5 MG TAB PO PRN ×2 (02:12→20:08)
[2018-08-03] MEDS: Bupropion 150 MG XL TAB PO SCH (07:57)
[2018-08-03] MEDS: Rivaroxaban 10 MG TAB PO SCH (07:57)
[2018-08-03] MEDS: ALPRAZolam 0.5 MG TAB PO SCH ×2 (07:57→14:11)
[2018-08-03] MEDS: Metoprolol Tartrate 25 MG TAB PO SCH ×2 (07:57→20:10)
[2018-08-03] MEDS: Spironolactone 25 MG TAB PO SCH (07:57)
[2018-08-03] MEDS: Loratadine 10 MG TAB PO SCH (07:58)
[2018-08-03] MEDS: Budesonide 0.5 MG/2 ML NEB NEB SCH ×2 (07:58→20:10)
[2018-08-03] MEDS: Senokot S 8.6-50 MG TAB PO SCH ×2 (07:58→20:10)
[2018-08-03] MEDS: Fish Oil 1,000 MG CAP PO SCH (07:58)
[2018-08-03] MEDS: Benzonatate 100 MG CAP PO PRN (10:45)
[2018-08-03] MEDS: Atorvastatin Calcium 10 MG TAB PO SCH (20:10)
[2018-08-04] MEDS: HYDROcodone/Acetaminophen 5/325 mg Tablet PO PRN ×4 (02:34→18:00)
[2018-08-04] MEDS: ALPRAZolam 0.5 MG TAB PO PRN (02:34)
[2018-08-04] MEDS: Bupropion 150 MG XL TAB PO SCH (07:55)
[2018-08-04] MEDS: Metoprolol Tartrate 25 MG TAB PO SCH ×2 (07:56→20:08)
[2018-08-04] MEDS: Fish Oil 1,000 MG CAP PO SCH (07:56)
[2018-08-04] MEDS: Spironolactone 25 MG TAB PO SCH (07:56)
[2018-08-04] MEDS: ALPRAZolam 0.5 MG TAB PO SCH ×2 (07:56→14:52)
[2018-08-04] MEDS: Rivaroxaban 10 MG TAB PO SCH (07:56)
[2018-08-04] MEDS: Loratadine 10 MG TAB PO SCH (07:56)
[2018-08-04] MEDS: Senokot S 8.6-50 MG TAB PO SCH ×2 (07:56→20:10)
[2018-08-04] MEDS: Budesonide 0.5 MG/2 ML NEB NEB SCH ×2 (07:57→20:08)
[2018-08-04] MEDS: Atorvastatin Calcium 10 MG TAB PO SCH (20:10)
[2018-08-04] MEDS: Benzonatate 100 MG CAP PO PRN (20:10)
[2018-08-05] MEDS: Spironolactone 25 MG TAB PO SCH (08:00)
[2018-08-05 08:41] VITALS: BP 140/66; TEMP 98
[2018-08-05] MEDS: Loratadine 10 MG TAB PO SCH (09:00)
[2018-08-05] MEDS: ALPRAZolam 0.5 MG TAB PO SCH (09:00)
[2018-08-05] MEDS: Fish Oil 1,000 MG CAP PO SCH (09:00)
[2018-08-05] MEDS: Metoprolol Tartrate 25 MG TAB PO SCH (09:00)
[2018-08-05] MEDS: Senokot S 8.6-50 MG TAB PO SCH (09:00)
[2018-08-05] MEDS: Rivaroxaban 10 MG TAB PO SCH (09:00)
[2018-08-05] MEDS: Budesonide 0.5 MG/2 ML NEB NEB SCH (09:00)
[2018-08-05] MEDS: Bupropion 150 MG XL TAB PO SCH (10:50)
[2018-08-05] MEDS: HYDROcodone/Acetaminophen 5/325 mg Tablet PO PRN (10:52)
--- NOTE | 2018-08-06 07:23 | DIS ---
DATE OF ADMISSION: 07/18/2018 DATE OF DISCHARGE: 08/05/2018 PRIMARY CARE PHYSICIAN: Dr. Mychal Hoffman. ONCOLOGIST: Dr. Riley. REASON FOR ADMISSION: [facility] for skilled rehab after hospitalization. DIAGNOSES: 1. Deconditioning/general weakness. 2. New onset atrial fibrillation. Rate controlled on beta tong and Xarelto. 3. Superior vena cava syndrome/obstruction. 4. Metastatic squamous cell carcinoma, previously on oral chemotherapy, but was discontinued secondary to severe debility/deconditioning. 5. Chronic obstructive pulmonary disease, O2 requiring. 6. Chronic anemia. 7. Dyslipidemia. 8. Depression and anxiety. 9. Chronic gastroesophageal reflux. 10. Long-term use of anticoagulant. 11. Unsteady gait. 12. Chronic respiratory failure, O2 dependent. DISPOSITION: Transferred to [facility] in [place] per request. CONDITION ON DISCHARGE: Guarded. HOME MEDICATION: 1. Fentanyl patch 25 mcg q.72 hours. 2. Bupropion 300 mg p.o. daily. 3. [place] 5/325 mg p.o. q.4 hours p.r.n. for breakthrough pain. 4. Metoprolol 25 mg p.o. b.i.d. 5. Pantoprazole 40 mg daily. 6. Xarelto 20 mg p.o. daily. 7. Spironolactone 25 mg p.o. daily. 8. Alprazolam 0.5 mg q.4 hours p.r.n. 9. Atorvastatin 10 mg p.o. at bedtime. 10. DuoNeb 3 mL hours p.r.n. 11. Budesonide 0.5 mg inhaled b.i.d. 12. Cholestyramine/Aspartame 4 g p.o. b.i.d. 13. Senokot S 1 tab p.o. b.i.d. DIET: Regular. ACTIVITY: Ad denis. To use rolling walker at all times secondary to unsteadiness of gait and risk for fall. HISTORY OF PRESENT ILLNESS AND HOSPITAL COURSE: Ms. Jeffers is an unfortunate 73-year-old female with significant history of superior vena cava syndrome, small cell lung carcinoma with thoracic fractures secondary to radiation therapy; COPD, O2 dependent; rheumatoid arthritis, asthma, osteoporosis, depression, and anxiety. The patient was recently admitted to [facility] on 07/14/2018 secondary to new onset of atrial fibrillation and rapid ventricular response. The patient was treated appropriately in the hospital. Her fleet administrative assistant, Dr. Ortiz added metoprolol for rate control. Patient is already on Xarelto. During this admission, Dr. Riley, her oncologist withheld her oral chemotherapy secondary to current medical conditions. There was a plan of putting a stent per Dr. Ortiz to alleviate the superior vena cava obstruction. The patient was stabilized in the hospital and subsequently transferred to [facility] for skilled rehab on 07/18/2018. The patient had a hard time dealing with rehab because of general weakness, intermittent shortness of breath, and intermittent pain mostly of the shoulders. There are days that she would participate well, but there are days that she would not with therapy. The patient's pain over time had progressively worsened. She was initially started on [place] alternating with Tylenol No. 3 that was unsuccessful. She ended up with long-acting fentanyl patch. We started at 12.5 mcg of fentanyl, but she was discharged on 25 mcg of fentanyl patch q.72 hours. The patient also had issues with her respiratory status overall. She had a hard time walking initially from bed to the bathroom despite of continuous O2 per nasal cannula. Patient eventually improved with overall functional status, but her pain persistently progressed as above. Patient followed up with Dr. Riley a couple of weeks prior to discharge as outpatient to see if she could be put back on oral chemotherapy. The oncologist, however, did not recommend to continue oral chemotherapy at this point secondary to current medical conditions. She was then recommended [facility] [place] to be nearby if chemotherapy will be considered in the near future. There was a discussion regarding palliative care with hospice as her friend Daniella, whom she considered and introduced to us as her sister consulted back with her PCP, Dr. Mychal Hoffman, who agreed for palliative care. I also consulted Dr. Riley about this, who himself believed that this is the best treatment option for patient at this point as he could not foresee the patient will be able to get back to her baseline functional status and overall health condition, thus the chance for renewing her chemotherapy is very slim at this point. After I discussed with the patient several times regarding the palliative care including her friend Daniella, the patient decided for palliative care with hospice that her PCP, Dr. Hoffman recommended. After patient was accepted to [facility], the patient was discharged on 08/05/2018 and agreed and chose [facility] under Dr. Hoffman. VITAL SIGNS PRIOR TO DISCHARGE: Blood pressure 140/66, temp 98, pulse 68, respiration 18, O2 sats 98%. Weight 137 pounds and 2 ounces, height 5 feet 4 inches. CODE STATUS: The patient is DNAR. Job ID: [id number]
== END 2018-08-05 11:40 | disposition home health service (06) | DRG 309 ==
LOC: MADMS 13:45
PROVIDERS: ADMIT Family Medicine; ATTEND Family Medicine
DX: I48.91 Unspecified atrial fibrillation (principal); I87.1 Compression of vein; J96.10 Chronic respiratory failure, unspecified whether with hypoxia or hypercapnia; C34.90 Malignant neoplasm of unspecified part of unspecified bronchus or lung; Z66 Do not resuscitate; R53.81 Other malaise; R53.1 Weakness; J44.9 Chronic obstructive pulmonary disease, unspecified; E87.5 Hyperkalemia; D64.9 Anemia, unspecified; E78.5 Hyperlipidemia, unspecified; F32.9 Major depressive disorder, single episode, unspecified; F41.9 Anxiety disorder, unspecified; K21.9 Gastro-esophageal reflux disease without esophagitis; J30.2 Other seasonal allergic rhinitis; R26.81 Unsteadiness on feet; M06.9 Rheumatoid arthritis, unspecified; M81.0 Age-related osteoporosis without current pathological fracture; M19.90 Unspecified osteoarthritis, unspecified site; Z95.0 Presence of cardiac pacemaker; Z79.01 Long term (current) use of anticoagulants; Z92.21 Personal history of antineoplastic chemotherapy; Z90.710 Acquired absence of both cervix and uterus; Z90.89 Acquired absence of other organs; Z87.891 Personal history of nicotine dependence; Z88.0 Allergy status to penicillin; Z88.2 Allergy status to sulfonamides
CPT/HCPCS: 36415; 71046; 80048; 85025; 94640; J7620; J7626